=== PATIENT | male | born 1960 | race African-American/Black ===

== ENCOUNTER 2018-08-17 10:48 | Inpatient (IN) | payer OTHER ==
[2018-08-17 11:21] VITALS: BMI 20.7
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
[2018-08-17] MEDS ORDERED: ACETAMINOPHEN 325 MG TABLET (FP) PO PRN (15:32)
[2018-08-17] MEDS ORDERED: hydrOXYzine PAMOATE 25 MG CAPSULE (FP) PO PRN (15:32)
[2018-08-17] MEDS ORDERED: P-EPHED 60MG/TRIPROLIDI 2.5MG TABLET PO PRN (15:32)
[2018-08-17] MEDS ORDERED: MAGNESIUM CITRATE 300 ML BOTTLE PO PRN (15:32)
[2018-08-17] MEDS ORDERED: MAGNESIUM HYDROX 2400MG/30ML ORAL SUSPENSION 30 ML CUP PO PRN (15:32)
[2018-08-17] MEDS ORDERED: NICOTINE POLACRILEX 2 MG GUM BUC PRN (15:32)
[2018-08-17] MEDS ORDERED: chlordiazePOXIDE HCL 25 MG CAPSULE PO PRN (15:32)
[2018-08-17] MEDS ORDERED: IBUPROFEN 400 MG TABLET (FP) PO PRN (15:32)
[2018-08-17] MEDS ORDERED: guaiFENesin/D-METHORPHAN HB 10 ML UNIT-DOSE CUPS PO PRN (15:32)
[2018-08-17] MEDS ORDERED: LOPERAMIDE HCL 2 MG CAPSULE PO PRN (15:32)
[2018-08-17] MEDS: chlordiazePOXIDE HCL 25 MG CAPSULE PO SCH ×2 (17:31→22:57)
[2018-08-17] MEDS: THIAMINE HCL 100 MG TABLET (FP) PO SCH (22:57)
[2018-08-17 23:53] LABS: URINE APPEARANCE CLEAR; URINE BILIRUBIN NEGATIVE (<2.0 mg/dL); URINE COLOR DKYELLOW; URINE GLUCOSE (UA) NEGATIVE (NEGATIVE); URINE KETONE NEGATIVE (NEGATIVE); URINE LEUK ESTERASE NEGATIVE (NEGATIVE); URINE NITRITE NEGATIVE (NEGATIVE); URINE PROTEIN NEGATIVE (NEGATIVE); URINE UROBILINOGEN 4.0 E.U/dl mg/dL (0.2-1.0)
[2018-08-18] MEDS: chlordiazePOXIDE HCL 25 MG CAPSULE PO SCH ×4 (05:53→23:17)
[2018-08-18 10:14] LABS: HEMATOCRIT 45.4 % (35.4-49); HEMOGLOBIN 14.6 GM/dL (11.7-16.9); MCH 32.3 pg (25.7-33.7); MCHC 32.2 g/dl (32.0-35.9); MEAN CELL VOLUME 100.1 fl (80-96); PLATELET COUNT 244 K/MM3 (134-434); RBC 4.54 M/mm3 (4.00-5.60); RDW 13.1 % (11.9-15.9); WHITE BLOOD COUNT 9.1 K/mm3 (4.0-10.0)
[2018-08-18 10:36] LABS: ALBUMIN 3.1 g/dl (3.4-5.0); ALK PHOS 74 U/L (45-117); ANION GAP 6 MMOL/L (8-16); BILIRUBIN,TOTAL 0.2 mg/dL (0.2-1); BLOOD UREA NITROGEN 16 mg/dL (7-18); CALCIUM 8.5 mg/dL (8.5-10.1); CHLORIDE 109 mmol/L (98-107); CO2 28 mmol/L (21-32); CREATININE 1.1 mg/dL (0.55-1.3); GLUCOSE,RANDOM 104 mg/dL (74-106); POTASSIUM 4.1 mmol/L (3.5-5.1); SGOT/AST 18 U/L (15-37); SGPT/ALT 23 U/L (13-61); SODIUM 142 mmol/L (136-145); TOT PROT 6.1 g/dl (6.4-8.2)
[2018-08-18] MEDS: PRENATAL VITAMINS W/ FOLIC ACID TABLET (FP) PO SCH (10:38)
[2018-08-18] MEDS: NICOTINE 21 MG/24 HOURS TOPICAL PATCH TD SCH (10:38)
--- NOTE | 2018-08-18 12:56 | PN ---
[facility] CIWA - CIWA Score Nausea/Vomitin-Mild Nausea/No Vomiting Muscle Tremors: 2 Anxiety: 1-Mildly Anxious Agitation: 1-Slight > Activity Paroxysmal Sweats: 1-Minimal Palms Moist Orientation: 0-Oriented Tacttile Disturbances: 0-None Auditory Disturbances: 0-None Visual Disturbances: 0-None Headache: 0-None Present CIWA-Ar Total Score: 6 [facility] Progress Note (SOAP) Subjective: pt states feeling fine today- feeling better with meds O: Vital Signs - 24 hr 08/17/18 08/18/18 08/18/18 17:29 03:30 06:44 Temperature 98.4 F 97.7 F Pulse Rate 81 69 Respiratory 18 18 18 Rate Blood Pressure 116/74 127/80 08/18/18 09:26 Temperature 98.2 F Pulse Rate 83 Respiratory 18 Rate Blood Pressure 117/90 Laboratory Tests 08/17/18 08/18/18 08/18/18 23:00 07:00 07:00 WBC 9.1 RBC 4.54 Hgb 14.6 Hct 45.4 MCV 100.1 H MCH 32.3 MCHC 32.2 RDW 13.1 Plt Count 244 D MPV 8.0 Sodium 142 Potassium 4.1 Chloride 109 H Carbon Dioxide 28 Anion Gap 6 L BUN 16 Creatinine 1.1 Creat Clearance w eGFR > 60 Random Glucose 104 Calcium 8.5 Total Bilirubin 0.2 AST 18 ALT 23 Alkaline Phosphatase 74 Total Protein 6.1 L Albumin 3.1 L Urine Color Dkyellow Urine Appearance Clear Urine pH 5.0 Ur Specific [place] 1.025 Urine Protein Negative Urine Glucose (UA) Negative Urine Ketones Negative Urine Blood Negative Urine Nitrite Negative Urine Bilirubin Negative Urine Urobilinogen 4.0 e.u/dl Ur Leukocyte Esterase Negative a/p: continue alcohol detox protocol: to would like to continue with NA meetings at discharge
[2018-08-18] MEDS: MELATONIN 5 MG TABLETS PO PRN (23:17)
[2018-08-18] MEDS: THIAMINE HCL 100 MG TABLET (FP) PO SCH (23:17)
[2018-08-19] MEDS: chlordiazePOXIDE HCL 25 MG CAPSULE PO SCH ×2 (06:04→11:15)
[2018-08-19] MEDS: PRENATAL VITAMINS W/ FOLIC ACID TABLET (FP) PO SCH (11:14)
[2018-08-19] MEDS: NICOTINE 21 MG/24 HOURS TOPICAL PATCH TD SCH (11:14)
--- NOTE | 2018-08-19 16:24 | PN ---
[facility] CIWA - CIWA Score Nausea/Vomitin-Mild Nausea/No Vomiting Muscle Tremors: 3 Anxiety: 3 Agitation: 2 Paroxysmal Sweats: 3 Orientation: 0-Oriented Tacttile Disturbances: 0-None Auditory Disturbances: 0-None Visual Disturbances: 0-None Headache: 0-None Present CIWA-Ar Total Score: 12 S Progress Note (SOAP) Subjective: sweats shakes Objective: 08/19/18 16:22 A& o x 3 in bed no acute distress noted Vital Signs Temperature 97.9 F 08/19/18 13:50 Pulse Rate 80 08/19/18 13:50 Respiratory Rate 18 08/19/18 13:50 Blood Pressure 120/79 08/19/18 13:50 O2 Sat by Pulse Oximetry (%) Laboratory Last Values WBC 9.1 K/mm3 (4.0-10.0) 08/18/18 07:00 RBC 4.54 M/mm3 (4.00-5.60) 08/18/18 07:00 Hgb 14.6 GM/dL (11.7-16.9) 08/18/18 07:00 Hct 45.4 % (35.4-49) 08/18/18 07:00 MCV 100.1 fl (80-96) H 08/18/18 07:00 MCH 32.3 pg (25.7-33.7) 08/18/18 07:00 MCHC 32.2 g/dl (32.0-35.9) 08/18/18 07:00 RDW 13.1 % (11.9-15.9) 08/18/18 07:00 Plt Count 244 K/MM3 (134-434) D 08/18/18 07:00 MPV 8.0 fl (7.5-11.1) 08/18/18 07:00 Sodium 142 mmol/L (136-145) 08/18/18 07:00 Potassium 4.1 mmol/L (3.5-5.1) 08/18/18 07:00 Chloride 109 mmol/L (98-107) H 08/18/18 07:00 Carbon Dioxide 28 mmol/L (21-32) 08/18/18 07:00 Anion Gap 6 MMOL/L (8-16) L 08/18/18 07:00 BUN 16 mg/dL (7-18) 08/18/18 07:00 Creatinine 1.1 mg/dL (0.55-1.3) 08/18/18 07:00 Creat Clearance w eGFR > 60 (>60) 08/18/18 07:00 Random Glucose 104 mg/dL (74-106) 08/18/18 07:00 Calcium 8.5 mg/dL (8.5-10.1) 08/18/18 07:00 Total Bilirubin 0.2 mg/dL (0.2-1) 08/18/18 07:00 AST 18 U/L (15-37) 08/18/18 07:00 ALT 23 U/L (13-61) 08/18/18 07:00 Alkaline Phosphatase 74 U/L (45-117) 08/18/18 07:00 Total Protein 6.1 g/dl (6.4-8.2) L 08/18/18 07:00 Albumin 3.1 g/dl (3.4-5.0) L 08/18/18 07:00 Urine Color Dkyellow 08/17/18 23:00 Urine Appearance Clear 08/17/18 23:00 Urine pH 5.0 (5.0-8.0) 08/17/18 23:00 Ur Specific [place] 1.025 (1.010-1.035) 08/17/18 23:00 Urine Protein Negative (NEGATIVE) 08/17/18 23:00 Urine Glucose (UA) Negative (NEGATIVE) 08/17/18 23:00 Urine Ketones Negative (NEGATIVE) 08/17/18 23:00 Urine Blood Negative (NEGATIVE) 08/17/18 23:00 Urine Nitrite Negative (NEGATIVE) 08/17/18 23:00 Urine Bilirubin Negative (<2.0 mg/dL) 08/17/18 23:00 Urine Urobilinogen 4.0 e.u/dl mg/dL (0.2-1.0) 08/17/18 23:00 Ur Leukocyte Esterase Negative (NEGATIVE) 08/17/18 23:00 RPR Titer Nonreactive (NONREACTIVE) 08/18/18 07:00 Assessment: 08/19/18 16:23 withdrawal sx Plan: Continue detox
[2018-08-19] MEDS: chlordiazePOXIDE 5 MG CAPSULE PO SCH ×2 (18:24→23:56)
[2018-08-19] MEDS: THIAMINE HCL 100 MG TABLET (FP) PO SCH (23:56)
[2018-08-20] MEDS: chlordiazePOXIDE 5 MG CAPSULE PO SCH ×2 (05:19→10:21)
[2018-08-20] MEDS: PRENATAL VITAMINS W/ FOLIC ACID TABLET (FP) PO SCH (10:21)
[2018-08-20] MEDS: NICOTINE 21 MG/24 HOURS TOPICAL PATCH TD SCH (10:21)
--- NOTE | 2018-08-20 12:36 | PN ---
[facility] Progress Note (SOAP) Subjective: feeling better less tremor mild sweating no gi distress Objective: 08/20/18 12:35 Vital Signs Temperature 98.3 F 08/20/18 09:36 Pulse Rate 82 08/20/18 09:36 Respiratory Rate 18 08/20/18 09:36 Blood Pressure 100/65 08/20/18 09:36 O2 Sat by Pulse Oximetry (%) Laboratory Last Values WBC 9.1 K/mm3 (4.0-10.0) 08/18/18 07:00 RBC 4.54 M/mm3 (4.00-5.60) 08/18/18 07:00 Hgb 14.6 GM/dL (11.7-16.9) 08/18/18 07:00 Hct 45.4 % (35.4-49) 08/18/18 07:00 MCV 100.1 fl (80-96) H 08/18/18 07:00 MCH 32.3 pg (25.7-33.7) 08/18/18 07:00 MCHC 32.2 g/dl (32.0-35.9) 08/18/18 07:00 RDW 13.1 % (11.9-15.9) 08/18/18 07:00 Plt Count 244 K/MM3 (134-434) D 08/18/18 07:00 MPV 8.0 fl (7.5-11.1) 08/18/18 07:00 Sodium 142 mmol/L (136-145) 08/18/18 07:00 Potassium 4.1 mmol/L (3.5-5.1) 08/18/18 07:00 Chloride 109 mmol/L (98-107) H 08/18/18 07:00 Carbon Dioxide 28 mmol/L (21-32) 08/18/18 07:00 Anion Gap 6 MMOL/L (8-16) L 08/18/18 07:00 BUN 16 mg/dL (7-18) 08/18/18 07:00 Creatinine 1.1 mg/dL (0.55-1.3) 08/18/18 07:00 Creat Clearance w eGFR > 60 (>60) 08/18/18 07:00 Random Glucose 104 mg/dL (74-106) 08/18/18 07:00 Calcium 8.5 mg/dL (8.5-10.1) 08/18/18 07:00 Total Bilirubin 0.2 mg/dL (0.2-1) 08/18/18 07:00 AST 18 U/L (15-37) 08/18/18 07:00 ALT 23 U/L (13-61) 08/18/18 07:00 Alkaline Phosphatase 74 U/L (45-117) 08/18/18 07:00 Total Protein 6.1 g/dl (6.4-8.2) L 08/18/18 07:00 Albumin 3.1 g/dl (3.4-5.0) L 08/18/18 07:00 Urine Color Dkyellow 08/17/18 23:00 Urine Appearance Clear 08/17/18 23:00 Urine pH 5.0 (5.0-8.0) 08/17/18 23:00 Ur Specific [place] 1.025 (1.010-1.035) 08/17/18 23:00 Urine Protein Negative (NEGATIVE) 08/17/18 23:00 Urine Glucose (UA) Negative (NEGATIVE) 08/17/18 23:00 Urine Ketones Negative (NEGATIVE) 08/17/18 23:00 Urine Blood Negative (NEGATIVE) 08/17/18 23:00 Urine Nitrite Negative (NEGATIVE) 08/17/18 23:00 Urine Bilirubin Negative (<2.0 mg/dL) 08/17/18 23:00 Urine Urobilinogen 4.0 e.u/dl mg/dL (0.2-1.0) 08/17/18 23:00 Ur Leukocyte Esterase Negative (NEGATIVE) 08/17/18 23:00 RPR Titer Nonreactive (NONREACTIVE) 08/18/18 07:00 lab noted Assessment: 08/20/18 12:35 withdrawal sx Plan: continue detox
[2018-08-20] MEDS: chlordiazePOXIDE HCL 10 MG CAPSULE PO SCH ×2 (18:46→22:20)
[2018-08-20] MEDS: THIAMINE HCL 100 MG TABLET (FP) PO SCH (22:20)
[2018-08-21] MEDS: chlordiazePOXIDE HCL 10 MG CAPSULE PO SCH ×2 (05:57→10:30)
--- NOTE | 2018-08-21 08:58 | DS ---
[facility] Detox Discharge Summary Admission Date: 08/17/18 Discharge Date: 08/21/18 - History Present History: Alcohol Dependence, Cannabis Dependence - Physical Exam Results Vital Signs: Vital Signs Temperature 98.1 F 08/21/18 06:16 Pulse Rate 65 08/21/18 06:16 Respiratory Rate 18 08/21/18 06:16 Blood Pressure 107/63 08/21/18 06:16 O2 Sat by Pulse Oximetry (%) - Treatment Hospital Course: Detox Protocol Followed, Detoxed Safely, Responded well, Discharged Condition Good, Rehab Referral Accepted - Medication Discharge Medications: Ambulatory Orders Quetiapine Fumarate [Seroquel -] 300 mg PO HS 01/13/15 Fluoxetine HCl [Prozac -] 20 mg PO DAILY #30 capsule 02/10/15 - Diagnosis (1) Alcohol dependence with uncomplicated withdrawal Current Visit: Yes Status: Chronic (2) Bipolar disorder Current Visit: Yes Status: Acute (3) Cocaine dependence Current Visit: Yes Status: Chronic Qualifiers: Substance use status: uncomplicated Qualified Code(s): F14.20 - Cocaine dependence, uncomplicated (4) History of chaves Current Visit: Yes Status: Acute (5) Bipolar disorder Current Visit: No Status: Acute (6) Schizoaffective disorder Current Visit: No Status: Acute (7) Simple dental caries Current Visit: No Status: Acute (8) Arthritis Current Visit: No Status: Chronic (9) Cannabis dependence Current Visit: Yes Status: Chronic (10) Nicotine dependence Current Visit: Yes Status: Chronic Qualifiers: Nicotine product type: cigarettes Substance use status: uncomplicated Qualified Code(s): F17.210 - Nicotine dependence, cigarettes, uncomplicated (11) Use of cane as ambulatory aid Current Visit: No Status: Chronic - AMA Did Patient Leave Against Medical Advice: No ([facility])
[2018-08-21] MEDS: NICOTINE 21 MG/24 HOURS TOPICAL PATCH TD SCH (10:29)
[2018-08-21] MEDS: PRENATAL VITAMINS W/ FOLIC ACID TABLET (FP) PO SCH (10:29)
--- NOTE | 2018-08-21 15:20 | HP ---
[facility] Rehab Assess/Revision - Admission History Admitted to Rehab from: [facility] - Vital signs Vital Signs: Vital Signs Period Temp Pulse Resp BP Sys/Wilson Pulse Ox Last 24 Hr 98.1 F-99.0 F 65-79 16-18 107-123/58-89 - Findings Detox History & Physical reviewed: Yes Concur with findings: Yes Inpatient Rehab Admission - Initial Determination Are CD services needed?: Yes Free of communicable disease: Yes Not in need of hospitalization: Yes - Rehab Admission Criteria Previous failed treatment: Yes Comorbidities: Yes Lacks judgement: Yes
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
[2018-08-21] MEDS: QUEtiapine FUMARATE 50 MG TABLET PO SCH (21:49)
[2018-08-21] MEDS: THIAMINE HCL 100 MG TABLET (FP) PO SCH (21:49)
[2018-08-22] MEDS: PRENATAL VITAMINS W/ FOLIC ACID TABLET (FP) PO SCH (11:00)
[2018-08-22] MEDS: NICOTINE 21 MG/24 HOURS TOPICAL PATCH TD SCH (11:00)
[2018-08-22] MEDS: QUEtiapine FUMARATE 50 MG TABLET PO SCH (21:51)
[2018-08-22] MEDS: THIAMINE HCL 100 MG TABLET (FP) PO SCH (21:51)
[2018-08-22] MEDS: MAG HYDROX/AL HYDROX/SIMETH 30 ML UNIT-DOSE CUP PO PRN (21:52)
[2018-08-23] MEDS: NICOTINE 21 MG/24 HOURS TOPICAL PATCH TD SCH (10:45)
[2018-08-23] MEDS: PRENATAL VITAMINS W/ FOLIC ACID TABLET (FP) PO SCH (10:45)
[2018-08-23] MEDS: THIAMINE HCL 100 MG TABLET (FP) PO SCH (21:36)
[2018-08-23] MEDS: MELATONIN 5 MG TABLETS PO PRN (21:36)
[2018-08-23] MEDS: QUEtiapine FUMARATE 50 MG TABLET PO SCH (21:36)
[2018-08-24] MEDS: PRENATAL VITAMINS W/ FOLIC ACID TABLET (FP) PO SCH (10:30)
[2018-08-24] MEDS: NICOTINE 21 MG/24 HOURS TOPICAL PATCH TD SCH (10:31)
[2018-08-24] MEDS: TOLNAFTATE 1% CREAM 15 GM TUBE TP SCH ×2 (10:31→22:07)
--- NOTE | 2018-08-24 10:51 | PN ---
[facility] Progress Note Note: PT C/O DRY ITCHY FEET AND REQUESTING TREATMENT. Vital Signs 08/24/18 08/24/18 03:30 07:11 Temperature 98.3 F Pulse Rate 62 Respiratory 18 18 Rate Blood Pressure 128/85 Laboratory Tests 08/17/18 08/18/18 08/18/18 23:00 07:00 07:00 WBC 9.1 RBC 4.54 Hgb 14.6 Hct 45.4 MCV 100.1 H MCH 32.3 MCHC 32.2 RDW 13.1 Plt Count 244 D MPV 8.0 Sodium 142 Potassium 4.1 Chloride 109 H Carbon Dioxide 28 Anion Gap 6 L BUN 16 Creatinine 1.1 Creat Clearance w eGFR > 60 Random Glucose 104 Calcium 8.5 Total Bilirubin 0.2 AST 18 ALT 23 Alkaline Phosphatase 74 Total Protein 6.1 L Albumin 3.1 L Urine Color Dkyellow Urine Appearance Clear Urine pH 5.0 Ur Specific [place] 1.025 Urine Protein Negative Urine Glucose (UA) Negative Urine Ketones Negative Urine Blood Negative Urine Nitrite Negative Urine Bilirubin Negative Urine Urobilinogen 4.0 e.u/dl Ur Leukocyte Esterase Negative RPR Titer 08/18/18 07:00 WBC RBC Hgb Hct MCV MCH MCHC RDW Plt Count MPV Sodium Potassium Chloride Carbon Dioxide Anion Gap BUN Creatinine Creat Clearance w eGFR Random Glucose Calcium Total Bilirubin AST ALT Alkaline Phosphatase Total Protein Albumin Urine Color Urine Appearance Urine pH Ur Specific [place] Urine Protein Urine Glucose (UA) Urine Ketones Urine Blood Urine Nitrite Urine Bilirubin Urine Urobilinogen Ur Leukocyte Esterase RPR Titer Nonreactive SKIN:VERY DRY SKIN FEET DRY, ASHY AND SCALY. DI:TINEA PEDIS DRY SKIN PLAN:TINACTIN CREAM DIRECTED EUCERINE CREAM DIRECTED.
[2018-08-24] MEDS ORDERED: MINERAL OIL/PETROLAT/WATER TOPICAL CREAM 113 GM JAR TP SCH (11:00)
[2018-08-24] MEDS: MINERAL OIL/PETROLAT/WATER TOPICAL CREAM 113 GM JAR TP SCH (14:19)
[2018-08-24] MEDS: THIAMINE HCL 100 MG TABLET (FP) PO SCH (21:39)
[2018-08-24] MEDS: QUEtiapine FUMARATE 50 MG TABLET PO SCH (21:39)
[2018-08-25] MEDS: PRENATAL VITAMINS W/ FOLIC ACID TABLET (FP) PO SCH (10:17)
[2018-08-25] MEDS: TOLNAFTATE 1% CREAM 15 GM TUBE TP SCH ×2 (10:18→21:47)
[2018-08-25] MEDS: NICOTINE 21 MG/24 HOURS TOPICAL PATCH TD SCH (10:18)
[2018-08-25] MEDS: MINERAL OIL/PETROLAT/WATER TOPICAL CREAM 113 GM JAR TP SCH (10:18)
--- NOTE | 2018-08-25 13:04 | PN ---
[facility] Progress Note Note: PT REPORTS HE TAKES GABAPENTIN FOR NEUROPATHY-BURNING/TINGLING EXTREMITIES. HX OF ARTHRITIS. MEDICATION CONFIRMED WITH [facility] DR[facility]ARMACIST TODAY AT [address] [place] [address],[facility]. PT HAD BEEN ON GABAPENTIN 300 MG PO DAILY, LAST PICKED UP AT THIS LOCATION IN JULY OF 2017. ;[phone]; FAX . PT REQUESTING WANTS TO RESTART DUE TO DISCOMFORT. Vital Signs 08/25/18 06:47 Temperature 97.8 F Pulse Rate 87 Respiratory 18 Rate Blood Pressure 105/76 AMBULATES WITH A CANE. PLAN:RESTART GABAPENTIN 300 MG PO PO DAILY FOLLOW UP WITH PMD FOR MEDICAL MANAGEMENT AFTER REHAB TREATMENT.
[2018-08-25] MEDS ORDERED: GABAPENTIN 300 MG CAPSULE (FP) PO ONE (14:07)
[2018-08-25] MEDS: QUEtiapine FUMARATE 50 MG TABLET PO SCH (21:46)
[2018-08-25] MEDS: THIAMINE HCL 100 MG TABLET (FP) PO SCH (21:46)
[2018-08-26] MEDS: PRENATAL VITAMINS W/ FOLIC ACID TABLET (FP) PO SCH (10:12)
[2018-08-26] MEDS: GABAPENTIN 300 MG CAPSULE (FP) PO SCH (10:12)
[2018-08-26] MEDS: MINERAL OIL/PETROLAT/WATER TOPICAL CREAM 113 GM JAR TP SCH (10:12)
[2018-08-26] MEDS: NICOTINE 21 MG/24 HOURS TOPICAL PATCH TD SCH (10:12)
[2018-08-26] MEDS: TOLNAFTATE 1% CREAM 15 GM TUBE TP SCH ×2 (10:13→22:23)
[2018-08-26] MEDS: QUEtiapine FUMARATE 50 MG TABLET PO SCH (21:49)
[2018-08-26] MEDS: THIAMINE HCL 100 MG TABLET (FP) PO SCH (21:49)
[2018-08-27] MEDS: GABAPENTIN 300 MG CAPSULE (FP) PO SCH (10:24)
[2018-08-27] MEDS: MINERAL OIL/PETROLAT/WATER TOPICAL CREAM 113 GM JAR TP SCH (10:25)
[2018-08-27] MEDS: TOLNAFTATE 1% CREAM 15 GM TUBE TP SCH ×2 (10:25→22:30)
[2018-08-27] MEDS: PRENATAL VITAMINS W/ FOLIC ACID TABLET (FP) PO SCH (10:25)
[2018-08-27] MEDS: NICOTINE 21 MG/24 HOURS TOPICAL PATCH TD SCH (10:25)
[2018-08-27] MEDS: THIAMINE HCL 100 MG TABLET (FP) PO SCH (21:37)
[2018-08-27] MEDS: QUEtiapine FUMARATE 50 MG TABLET PO SCH (21:37)
[2018-08-28] MEDS: NICOTINE 21 MG/24 HOURS TOPICAL PATCH TD SCH (10:08)
[2018-08-28] MEDS: TOLNAFTATE 1% CREAM 15 GM TUBE TP SCH ×2 (10:08→21:52)
[2018-08-28] MEDS: PRENATAL VITAMINS W/ FOLIC ACID TABLET (FP) PO SCH (10:08)
[2018-08-28] MEDS: MINERAL OIL/PETROLAT/WATER TOPICAL CREAM 113 GM JAR TP SCH (10:08)
[2018-08-28] MEDS: GABAPENTIN 300 MG CAPSULE (FP) PO SCH (10:08)
[2018-08-28] MEDS: QUEtiapine FUMARATE 50 MG TABLET PO SCH (21:51)
[2018-08-28] MEDS: THIAMINE HCL 100 MG TABLET (FP) PO SCH (21:51)
[2018-08-29] MEDS: GABAPENTIN 300 MG CAPSULE (FP) PO SCH (10:20)
[2018-08-29] MEDS: PRENATAL VITAMINS W/ FOLIC ACID TABLET (FP) PO SCH (10:20)
[2018-08-29] MEDS: MINERAL OIL/PETROLAT/WATER TOPICAL CREAM 113 GM JAR TP SCH (10:20)
[2018-08-29] MEDS: NICOTINE 21 MG/24 HOURS TOPICAL PATCH TD SCH (10:20)
[2018-08-29] MEDS: TOLNAFTATE 1% CREAM 15 GM TUBE TP SCH ×2 (10:20→21:38)
[2018-08-29] MEDS: THIAMINE HCL 100 MG TABLET (FP) PO SCH (21:37)
[2018-08-29] MEDS: QUEtiapine FUMARATE 50 MG TABLET PO SCH (21:37)
[2018-08-29] MEDS: MAG HYDROX/AL HYDROX/SIMETH 30 ML UNIT-DOSE CUP PO PRN (21:38)
[2018-08-30] MEDS: GABAPENTIN 300 MG CAPSULE (FP) PO SCH (10:21)
[2018-08-30] MEDS: NICOTINE 21 MG/24 HOURS TOPICAL PATCH TD SCH (10:21)
[2018-08-30] MEDS: PRENATAL VITAMINS W/ FOLIC ACID TABLET (FP) PO SCH (10:21)
[2018-08-30] MEDS: TOLNAFTATE 1% CREAM 15 GM TUBE TP SCH ×2 (10:21→21:43)
[2018-08-30] MEDS: MINERAL OIL/PETROLAT/WATER TOPICAL CREAM 113 GM JAR TP SCH (10:21)
[2018-08-30] MEDS: THIAMINE HCL 100 MG TABLET (FP) PO SCH (21:42)
[2018-08-30] MEDS: QUEtiapine FUMARATE 50 MG TABLET PO SCH (21:42)
[2018-08-31] MEDS: GABAPENTIN 300 MG CAPSULE (FP) PO SCH (10:25)
[2018-08-31] MEDS: MINERAL OIL/PETROLAT/WATER TOPICAL CREAM 113 GM JAR TP SCH (10:25)
[2018-08-31] MEDS: PRENATAL VITAMINS W/ FOLIC ACID TABLET (FP) PO SCH (10:25)
[2018-08-31] MEDS: NICOTINE 21 MG/24 HOURS TOPICAL PATCH TD SCH (10:26)
[2018-08-31] MEDS: TOLNAFTATE 1% CREAM 15 GM TUBE TP SCH ×2 (11:00→22:00)
[2018-08-31] MEDS: THIAMINE HCL 100 MG TABLET (FP) PO SCH (22:00)
[2018-08-31] MEDS: QUEtiapine FUMARATE 50 MG TABLET PO SCH (22:00)
[2018-09-01] MEDS: PRENATAL VITAMINS W/ FOLIC ACID TABLET (FP) PO SCH (10:22)
[2018-09-01] MEDS: GABAPENTIN 300 MG CAPSULE (FP) PO SCH (10:22)
[2018-09-01] MEDS: MINERAL OIL/PETROLAT/WATER TOPICAL CREAM 113 GM JAR TP SCH (10:23)
[2018-09-01] MEDS: NICOTINE 21 MG/24 HOURS TOPICAL PATCH TD SCH (10:23)
[2018-09-01] MEDS: TOLNAFTATE 1% CREAM 15 GM TUBE TP SCH ×2 (11:30→22:34)
[2018-09-01] MEDS: THIAMINE HCL 100 MG TABLET (FP) PO SCH (22:10)
[2018-09-01] MEDS: QUEtiapine FUMARATE 50 MG TABLET PO SCH (22:10)
[2018-09-02] MEDS: GABAPENTIN 300 MG CAPSULE (FP) PO SCH (10:30)
[2018-09-02] MEDS: TOLNAFTATE 1% CREAM 15 GM TUBE TP SCH ×2 (10:30→21:30)
[2018-09-02] MEDS: MINERAL OIL/PETROLAT/WATER TOPICAL CREAM 113 GM JAR TP SCH (10:30)
[2018-09-02] MEDS: PRENATAL VITAMINS W/ FOLIC ACID TABLET (FP) PO SCH (10:30)
[2018-09-02] MEDS: NICOTINE 21 MG/24 HOURS TOPICAL PATCH TD SCH (10:30)
[2018-09-02] MEDS: QUEtiapine FUMARATE 50 MG TABLET PO SCH (21:29)
[2018-09-02] MEDS: THIAMINE HCL 100 MG TABLET (FP) PO SCH (21:29)
[2018-09-03] MEDS: GABAPENTIN 300 MG CAPSULE (FP) PO SCH (10:13)
[2018-09-03] MEDS: PRENATAL VITAMINS W/ FOLIC ACID TABLET (FP) PO SCH (10:13)
[2018-09-03] MEDS: NICOTINE 21 MG/24 HOURS TOPICAL PATCH TD SCH (10:14)
[2018-09-03] MEDS: TOLNAFTATE 1% CREAM 15 GM TUBE TP SCH ×2 (10:14→21:30)
[2018-09-03] MEDS: MINERAL OIL/PETROLAT/WATER TOPICAL CREAM 113 GM JAR TP SCH (10:14)
[2018-09-03] MEDS: THIAMINE HCL 100 MG TABLET (FP) PO SCH (21:30)
[2018-09-03] MEDS: QUEtiapine FUMARATE 50 MG TABLET PO SCH (21:30)
[2018-09-04] MEDS: PRENATAL VITAMINS W/ FOLIC ACID TABLET (FP) PO SCH (10:49)
[2018-09-04] MEDS: GABAPENTIN 300 MG CAPSULE (FP) PO SCH (10:49)
[2018-09-04] MEDS: TOLNAFTATE 1% CREAM 15 GM TUBE TP SCH ×2 (10:49→21:37)
[2018-09-04] MEDS: NICOTINE 21 MG/24 HOURS TOPICAL PATCH TD SCH (10:50)
[2018-09-04] MEDS: MINERAL OIL/PETROLAT/WATER TOPICAL CREAM 113 GM JAR TP SCH (10:50)
[2018-09-04] MEDS: THIAMINE HCL 100 MG TABLET (FP) PO SCH (21:37)
[2018-09-04] MEDS: QUEtiapine FUMARATE 50 MG TABLET PO SCH (21:37)
[2018-09-05] MEDS: PRENATAL VITAMINS W/ FOLIC ACID TABLET (FP) PO SCH (10:59)
[2018-09-05] MEDS: MINERAL OIL/PETROLAT/WATER TOPICAL CREAM 113 GM JAR TP SCH (11:00)
[2018-09-05] MEDS: NICOTINE 21 MG/24 HOURS TOPICAL PATCH TD SCH (11:00)
[2018-09-05] MEDS: TOLNAFTATE 1% CREAM 15 GM TUBE TP SCH ×2 (11:00→21:47)
[2018-09-05] MEDS: GABAPENTIN 300 MG CAPSULE (FP) PO SCH (11:00)
[2018-09-05] MEDS: THIAMINE HCL 100 MG TABLET (FP) PO SCH (21:47)
[2018-09-05] MEDS: QUEtiapine FUMARATE 50 MG TABLET PO SCH (21:47)
[2018-09-06] MEDS: TOLNAFTATE 1% CREAM 15 GM TUBE TP SCH ×2 (10:46→21:35)
[2018-09-06] MEDS: MINERAL OIL/PETROLAT/WATER TOPICAL CREAM 113 GM JAR TP SCH (10:46)
[2018-09-06] MEDS: NICOTINE 21 MG/24 HOURS TOPICAL PATCH TD SCH (10:46)
[2018-09-06] MEDS: GABAPENTIN 300 MG CAPSULE (FP) PO SCH (10:46)
[2018-09-06] MEDS: PRENATAL VITAMINS W/ FOLIC ACID TABLET (FP) PO SCH (10:46)
[2018-09-06] MEDS: QUEtiapine FUMARATE 50 MG TABLET PO SCH (21:35)
[2018-09-06] MEDS: THIAMINE HCL 100 MG TABLET (FP) PO SCH (21:35)
[2018-09-07] MEDS: GABAPENTIN 300 MG CAPSULE (FP) PO SCH (10:11)
[2018-09-07] MEDS: PRENATAL VITAMINS W/ FOLIC ACID TABLET (FP) PO SCH (10:11)
[2018-09-07] MEDS: MINERAL OIL/PETROLAT/WATER TOPICAL CREAM 113 GM JAR TP SCH (10:11)
[2018-09-07] MEDS: TOLNAFTATE 1% CREAM 15 GM TUBE TP SCH ×2 (10:11→21:26)
[2018-09-07] MEDS: NICOTINE 21 MG/24 HOURS TOPICAL PATCH TD SCH (10:11)
[2018-09-07] MEDS: THIAMINE HCL 100 MG TABLET (FP) PO SCH (21:26)
[2018-09-07] MEDS: QUEtiapine FUMARATE 50 MG TABLET PO SCH (21:26)
[2018-09-08] MEDS: GABAPENTIN 300 MG CAPSULE (FP) PO SCH (10:18)
[2018-09-08] MEDS: TOLNAFTATE 1% CREAM 15 GM TUBE TP SCH ×2 (10:19→21:38)
[2018-09-08] MEDS: PRENATAL VITAMINS W/ FOLIC ACID TABLET (FP) PO SCH (10:19)
[2018-09-08] MEDS: NICOTINE 21 MG/24 HOURS TOPICAL PATCH TD SCH (10:19)
[2018-09-08] MEDS: MINERAL OIL/PETROLAT/WATER TOPICAL CREAM 113 GM JAR TP SCH (10:19)
[2018-09-08] MEDS: QUEtiapine FUMARATE 50 MG TABLET PO SCH (21:36)
[2018-09-08] MEDS: THIAMINE HCL 100 MG TABLET (FP) PO SCH (21:36)
[2018-09-09] MEDS: GABAPENTIN 300 MG CAPSULE (FP) PO SCH (10:17)
[2018-09-09] MEDS: PRENATAL VITAMINS W/ FOLIC ACID TABLET (FP) PO SCH (10:18)
[2018-09-09] MEDS: MINERAL OIL/PETROLAT/WATER TOPICAL CREAM 113 GM JAR TP SCH (10:18)
[2018-09-09] MEDS: NICOTINE 21 MG/24 HOURS TOPICAL PATCH TD SCH (10:18)
[2018-09-09] MEDS: TOLNAFTATE 1% CREAM 15 GM TUBE TP SCH ×2 (10:18→21:31)
[2018-09-09] MEDS: THIAMINE HCL 100 MG TABLET (FP) PO SCH (21:31)
[2018-09-09] MEDS: QUEtiapine FUMARATE 50 MG TABLET PO SCH (21:31)
[2018-09-10] MEDS: GABAPENTIN 300 MG CAPSULE (FP) PO SCH (09:52)
[2018-09-10] MEDS: PRENATAL VITAMINS W/ FOLIC ACID TABLET (FP) PO SCH (09:52)
[2018-09-10] MEDS: MINERAL OIL/PETROLAT/WATER TOPICAL CREAM 113 GM JAR TP SCH (09:52)
[2018-09-10] MEDS: NICOTINE 21 MG/24 HOURS TOPICAL PATCH TD SCH (09:53)
[2018-09-10] MEDS: TOLNAFTATE 1% CREAM 15 GM TUBE TP SCH ×2 (09:53→21:28)
[2018-09-10] MEDS: THIAMINE HCL 100 MG TABLET (FP) PO SCH (21:28)
[2018-09-10] MEDS: QUEtiapine FUMARATE 50 MG TABLET PO SCH (21:28)
[2018-09-10] MEDS: MENTHOL/PHENOL 1 EACH UD MM PRN (21:28)
[2018-09-11] MEDS: MENTHOL/PHENOL 1 EACH UD MM PRN (06:37)
[2018-09-11 07:27] VITALS: BP 108/82; PULSE 80; TEMP 99.2
[2018-09-11] MEDS: GABAPENTIN 300 MG CAPSULE (FP) PO SCH (10:12)
[2018-09-11] MEDS: PRENATAL VITAMINS W/ FOLIC ACID TABLET (FP) PO SCH (10:13)
[2018-09-11] MEDS: MINERAL OIL/PETROLAT/WATER TOPICAL CREAM 113 GM JAR TP SCH (10:13)
[2018-09-11] MEDS: NICOTINE 21 MG/24 HOURS TOPICAL PATCH TD SCH (10:14)
[2018-09-11] MEDS: TOLNAFTATE 1% CREAM 15 GM TUBE TP SCH (10:14)
--- NOTE | 2018-09-11 11:48 | PN ---
[facility] Progress Note Note: PT COMPLETED REHAB AND DISCHARGING TODAY. ALERT O X 3. PT REPORTS HE HAS A PCP DR. DAMIAN AT [address] [place] [address] FOR MEDICAL MANAGEMENT. PT WA REFERRED TO [facility] [place] FOR MEDICAL MANAGEMENT. Vital Signs 09/11/18 07:26 Temperature 99.2 F Pulse Rate 80 Respiratory 18 Rate Blood Pressure 108/82 Laboratory Tests 08/17/18 08/18/18 08/18/18 23:00 07:00 07:00 WBC 9.1 RBC 4.54 Hgb 14.6 Hct 45.4 MCV 100.1 H MCH 32.3 MCHC 32.2 RDW 13.1 Plt Count 244 D MPV 8.0 Sodium 142 Potassium 4.1 Chloride 109 H Carbon Dioxide 28 Anion Gap 6 L BUN 16 Creatinine 1.1 Creat Clearance w eGFR > 60 Random Glucose 104 Calcium 8.5 Total Bilirubin 0.2 AST 18 ALT 23 Alkaline Phosphatase 74 Total Protein 6.1 L Albumin 3.1 L Urine Color Dkyellow Urine Appearance Clear Urine pH 5.0 Ur Specific [place] 1.025 Urine Protein Negative Urine Glucose (UA) Negative Urine Ketones Negative Urine Blood Negative Urine Nitrite Negative Urine Bilirubin Negative Urine Urobilinogen 4.0 e.u/dl Ur Leukocyte Esterase Negative RPR Titer 08/18/18 07:00 WBC RBC Hgb Hct MCV MCH MCHC RDW Plt Count MPV Sodium Potassium Chloride Carbon Dioxide Anion Gap BUN Creatinine Creat Clearance w eGFR Random Glucose Calcium Total Bilirubin AST ALT Alkaline Phosphatase Total Protein Albumin Urine Color Urine Appearance Urine pH Ur Specific [place] Urine Protein Urine Glucose (UA) Urine Ketones Urine Blood Urine Nitrite Urine Bilirubin Urine Urobilinogen Ur Leukocyte Esterase RPR Titer Nonreactive NAD MEDICALLY STABLE PLAN:FOLLOW UP AT [facility] FOR CD TREATMENT. FOLLOW UP WITH PCP FOR MEDICAL MANAGEMENT ABOVE WITHIN 1-2 WEEKS AFTER DISCHARGE.
== END 2018-09-11 11:35 | disposition home or self-care (01) | DRG 895 ==
LOC: YASAS 10:48 → Y6N 15:22 → Y5N 08-21 15:20
PROC: HZ2ZZZZ Detoxification Services for Substance Abuse Treatment (ICD-10-PCS; principal; 2018-08-17)
PROC: HZ42ZZZ Group Counseling for Substance Abuse Treatment, Cognitive-Behavioral (ICD-10-PCS; 2018-08-21)
DX: F10.230 Alcohol dependence with withdrawal, uncomplicated (principal); F14.20 Cocaine dependence, uncomplicated; F12.20 Cannabis dependence, uncomplicated; F17.210 Nicotine dependence, cigarettes, uncomplicated; F31.9 Bipolar disorder, unspecified; F25.9 Schizoaffective disorder, unspecified; J45.909 Unspecified asthma, uncomplicated; G62.9 Polyneuropathy, unspecified; L98.8 Other specified disorders of the skin and subcutaneous tissue; M19.90 Unspecified osteoarthritis, unspecified site; K02.9 Dental caries, unspecified; R26.2 Difficulty in walking, not elsewhere classified; Z99.89 Dependence on other enabling machines and devices; Z87.828 Personal history of other (healed) physical injury and trauma; Z86.69 Personal history of other diseases of the nervous system and sense organs; Z91.5 Personal history of self-harm
CPT/HCPCS: 36415; 80053; 81003; 85027; 86593

== ENCOUNTER 2022-02-18 12:50 | Inpatient (IN) | payer OTHER ==
[2022-02-18 13:25] VITALS: BMI 23.5
[2022-02-18] MEDS ORDERED: BISMUTH SUBSALICYLATE 262 MG/15 ML BTL PO PRN (13:36)
[2022-02-18] MEDS ORDERED: BENZOCAINE/MENTHOL (CHLORASEPTIC ) LOZENGE MM PRN (13:36)
[2022-02-18] MEDS ORDERED: MAGNESIUM CITRATE 300 ML BOTTLE PO PRN (13:36)
[2022-02-18] MEDS ORDERED: DICYCLOMINE HCL 10 MG CAPSULE PO PRN (13:36)
[2022-02-18] MEDS ORDERED: ONDANSETRON *ODT* 4 MG TABLET SL PRN (13:36)
[2022-02-18] MEDS ORDERED: IBUPROFEN 600 MG TABLET (FP) PO PRN (13:36)
[2022-02-18] MEDS ORDERED: MAGNESIUM HYDROX 2400MG/30ML ORAL SUSPENSION 30 ML CUP PO PRN (13:36)
[2022-02-18] MEDS ORDERED: NICOTINE 10 MG CARTRIDGE (INHALER) IH PRN (13:36)
[2022-02-18] MEDS ORDERED: METHOCARBAMOL 500 MG TABLET PO PRN (13:36)
[2022-02-18] MEDS ORDERED: MAG HYDROX/AL HYDROX/SIMETH 30 ML UNIT-DOSE CUP PO PRN (13:36)
[2022-02-18] MEDS ORDERED: LOPERAMIDE HCL 2 MG CAPSULE PO PRN (13:36)
[2022-02-18] MEDS ORDERED: chlordiazePOXIDE HCL 25 MG CAPSULE PO PRN (13:36)
[2022-02-18] MEDS ORDERED: ACETAMINOPHEN 325 MG TABLET (FP) PO PRN ×2 (13:36)
[2022-02-18] MEDS ORDERED: IBUPROFEN 400 MG TABLET (FP) PO PRN (13:36)
[2022-02-18] MEDS: hydrOXYzine PAMOATE 25 MG CAPSULE (FP) PO SCH ×3 (14:38→22:46)
[2022-02-18] MEDS: chlordiazePOXIDE HCL 25 MG CAPSULE PO SCH ×2 (17:57→22:47)
[2022-02-18] MEDS: THIAMINE HCL 100 MG TABLET (FP) PO SCH (22:46)
[2022-02-18] MEDS: QUEtiapine FUMARATE 50 MG TABLET PO SCH (22:46)
[2022-02-18] MEDS: MELATONIN 5 MG TABLETS PO SCH (22:46)
[2022-02-19] MEDS: chlordiazePOXIDE HCL 25 MG CAPSULE PO SCH ×2 (05:14→11:13)
[2022-02-19] MEDS: hydrOXYzine PAMOATE 25 MG CAPSULE (FP) PO SCH ×5 (05:14→22:53)
[2022-02-19] MEDS: PRENATAL VITAMINS W/ FOLIC ACID TABLET (FP) PO SCH (10:24)
[2022-02-19] MEDS: NICOTINE 14 MG/24 HOURS TOPICAL PATCH TD SCH (10:25)
[2022-02-19] MEDS: FLUoxetine HCL 10 MG CAPSULE PO SCH (10:25)
[2022-02-19] MEDS ORDERED: diazePAM 5 MG TABLET PO PRN (12:04)
[2022-02-19 12:56] LABS: HEMATOCRIT 43.7 % (35.4-49); HEMOGLOBIN 14.6 GM/dL (11.7-16.9); MCH 33.2 pg (25.7-33.7); MCHC 33.4 g/dl (32.0-35.9); MEAN CELL VOLUME 99.2 fl (80-96); MEAN PLT VOLUME 7.8 fl (7.5-11.1); PLATELET COUNT 334 10^3/uL (134-434); RDW 12.7 % (11.9-15.9); WHITE BLOOD COUNT 7.5 K/mm3 (4.0-10.0)
[2022-02-19 13:23] LABS: BLOOD UREA NITROGEN 14.7 mg/dL (7-18); CALCIUM 8.9 mg/dL (8.5-10.1)
[2022-02-19 13:24] LABS: ALBUMIN 3.6 g/dl (3.4-5.0)
[2022-02-19 13:27] LABS: CREATININE 1.1 mg/dL (0.55-1.3)
[2022-02-19 13:28] LABS: BILIRUBIN,TOTAL 0.4 mg/dL (0.2-1); TOT PROT 6.8 g/dl (6.4-8.2)
[2022-02-19] MEDS: diazePAM 5 MG TABLET PO SCH ×2 (17:52→22:54)
[2022-02-19] MEDS: THIAMINE HCL 100 MG TABLET (FP) PO SCH (22:53)
[2022-02-19] MEDS: MELATONIN 5 MG TABLETS PO SCH (22:53)
[2022-02-19] MEDS: QUEtiapine FUMARATE 50 MG TABLET PO SCH (22:53)
[2022-02-20] MEDS ORDERED: chlordiazePOXIDE HCL 25 MG CAPSULE PO SCH (05:00)
[2022-02-20] MEDS: diazePAM 5 MG TABLET PO SCH ×4 (05:57→22:51)
[2022-02-20] MEDS: hydrOXYzine PAMOATE 25 MG CAPSULE (FP) PO SCH ×5 (05:57→22:52)
[2022-02-20] MEDS: PRENATAL VITAMINS W/ FOLIC ACID TABLET (FP) PO SCH (10:27)
[2022-02-20] MEDS: FLUoxetine HCL 10 MG CAPSULE PO SCH (10:27)
[2022-02-20] MEDS: NICOTINE 14 MG/24 HOURS TOPICAL PATCH TD SCH (10:27)
[2022-02-20] MEDS: MELATONIN 5 MG TABLETS PO SCH (22:51)
[2022-02-20] MEDS: QUEtiapine FUMARATE 50 MG TABLET PO SCH (22:51)
[2022-02-20] MEDS: THIAMINE HCL 100 MG TABLET (FP) PO SCH (22:52)
[2022-02-21] MEDS ORDERED: chlordiazePOXIDE HCL 10 MG CAPSULE PO PRN
[2022-02-21] MEDS ORDERED: chlordiazePOXIDE HCL 10 MG CAPSULE PO SCH (05:00)
[2022-02-21] MEDS: diazePAM 5 MG TABLET PO SCH ×3 (05:14→22:43)
[2022-02-21] MEDS: hydrOXYzine PAMOATE 25 MG CAPSULE (FP) PO SCH ×5 (05:15→22:43)
[2022-02-21] MEDS: FLUoxetine HCL 10 MG CAPSULE PO SCH (10:40)
[2022-02-21] MEDS: NICOTINE 14 MG/24 HOURS TOPICAL PATCH TD SCH (10:40)
[2022-02-21] MEDS: PRENATAL VITAMINS W/ FOLIC ACID TABLET (FP) PO SCH (10:40)
[2022-02-21] MEDS: THIAMINE HCL 100 MG TABLET (FP) PO SCH (22:43)
[2022-02-21] MEDS: QUEtiapine FUMARATE 50 MG TABLET PO SCH (22:43)
[2022-02-21] MEDS: MELATONIN 5 MG TABLETS PO SCH (22:43)
[2022-02-22] MEDS ORDERED: chlordiazePOXIDE HCL 10 MG CAPSULE PO SCH (05:00)
[2022-02-22] MEDS: hydrOXYzine PAMOATE 25 MG CAPSULE (FP) PO SCH ×5 (05:27→22:57)
[2022-02-22] MEDS: diazePAM 5 MG TABLET PO SCH ×2 (05:27→17:44)
[2022-02-22] MEDS: NICOTINE 14 MG/24 HOURS TOPICAL PATCH TD SCH (10:18)
[2022-02-22] MEDS: FLUoxetine HCL 10 MG CAPSULE PO SCH (10:18)
[2022-02-22] MEDS: PRENATAL VITAMINS W/ FOLIC ACID TABLET (FP) PO SCH (10:18)
[2022-02-22] MEDS: MELATONIN 5 MG TABLETS PO SCH (22:56)
[2022-02-22] MEDS: QUEtiapine FUMARATE 50 MG TABLET PO SCH (22:56)
[2022-02-22] MEDS: CLOTRIMAZOLE 1% CREAM TP SCH (22:57)
[2022-02-22] MEDS: THIAMINE HCL 100 MG TABLET (FP) PO SCH (22:57)
[2022-02-23] MEDS ORDERED: chlordiazePOXIDE HCL 10 MG CAPSULE PO ONE (05:00)
[2022-02-23] MEDS: hydrOXYzine PAMOATE 25 MG CAPSULE (FP) PO SCH ×3 (05:25→14:05)
[2022-02-23] MEDS ORDERED: diazePAM 5 MG TABLET PO ONE (06:00)
[2022-02-23] MEDS: CLOTRIMAZOLE 1% CREAM TP SCH (10:24)
[2022-02-23] MEDS: FLUoxetine HCL 10 MG CAPSULE PO SCH (10:24)
[2022-02-23] MEDS: PRENATAL VITAMINS W/ FOLIC ACID TABLET (FP) PO SCH (10:25)
[2022-02-23] MEDS: NICOTINE 14 MG/24 HOURS TOPICAL PATCH TD SCH (10:25)
[2022-02-23 13:04] VITALS: BP 133/90; PULSE 76; TEMP 97.7
== END 2022-02-23 14:36 | disposition other institution (70) | DRG 897 ==
LOC: YASAS 12:50 → Y3N 13:52
PROVIDERS: ADMIT Allergy & Immunology; ATTEND Surgery
PROC: HZ2ZZZZ Detoxification Services for Substance Abuse Treatment (ICD-10-PCS; principal; 2022-02-18)
DX: F10.230 Alcohol dependence with withdrawal, uncomplicated (principal); F14.20 Cocaine dependence, uncomplicated; F12.20 Cannabis dependence, uncomplicated; F17.210 Nicotine dependence, cigarettes, uncomplicated; F25.9 Schizoaffective disorder, unspecified; M15.9 Polyosteoarthritis, unspecified; Z99.89 Dependence on other enabling machines and devices; Z59.02 Unsheltered homelessness; Z56.0 Unemployment, unspecified
CPT/HCPCS: 36415; 80053; 85027; 86780; C9803-CS; U0003; U0005

== ENCOUNTER 2022-02-23 14:50 | Inpatient (IN) | payer OTHER ==
[2022-02-23] MEDS ORDERED: NICOTINE POLACRILEX 2 MG GUM BUC PRN (20:35)
[2022-02-23] MEDS ORDERED: P-EPHED 60MG/TRIPROLIDI 2.5MG TABLET PO PRN (20:35)
[2022-02-23] MEDS ORDERED: MAG HYDROX/AL HYDROX/SIMETH 30 ML UNIT-DOSE CUP PO PRN (20:35)
[2022-02-23] MEDS ORDERED: IBUPROFEN 400 MG TABLET (FP) PO PRN (20:35)
[2022-02-23] MEDS ORDERED: BENZOCAINE/MENTHOL (CHLORASEPTIC ) LOZENGE MM PRN (20:35)
[2022-02-23] MEDS ORDERED: MAGNESIUM HYDROX 2400MG/30ML ORAL SUSPENSION 30 ML CUP PO PRN (20:35)
[2022-02-23] MEDS ORDERED: MAGNESIUM CITRATE 300 ML BOTTLE PO PRN (20:35)
[2022-02-23] MEDS ORDERED: LOPERAMIDE HCL 2 MG CAPSULE PO PRN (20:35)
[2022-02-23] MEDS ORDERED: NICOTINE 10 MG CARTRIDGE (INHALER) IH PRN (20:35)
[2022-02-23] MEDS ORDERED: guaiFENesin 200 MG/10 ML 10 ML UNIT-DOSE CUPS PO PRN (20:35)
[2022-02-23] MEDS ORDERED: ACETAMINOPHEN 325 MG TABLET (FP) PO PRN (20:35)
[2022-02-23] MEDS: MELATONIN 5 MG TABLETS PO SCH (21:25)
[2022-02-23] MEDS: THIAMINE HCL 100 MG TABLET (FP) PO SCH (21:25)
[2022-02-24] MEDS: PRENATAL VITAMINS W/ FOLIC ACID TABLET (FP) PO SCH (10:19)
[2022-02-24] MEDS: MELATONIN 5 MG TABLETS PO SCH (22:08)
[2022-02-24] MEDS: THIAMINE HCL 100 MG TABLET (FP) PO SCH (22:08)
[2022-02-25] MEDS: FLUoxetine HCL 10 MG TABLET PO SCH (10:37)
[2022-02-25] MEDS: PRENATAL VITAMINS W/ FOLIC ACID TABLET (FP) PO SCH (10:37)
[2022-02-25] MEDS: THIAMINE HCL 100 MG TABLET (FP) PO SCH (21:14)
[2022-02-25] MEDS: QUEtiapine FUMARATE 50 MG TABLET PO SCH (21:14)
[2022-02-26] MEDS: FLUoxetine HCL 10 MG TABLET PO SCH (10:00)
[2022-02-26] MEDS: PRENATAL VITAMINS W/ FOLIC ACID TABLET (FP) PO SCH (10:00)
[2022-02-26] MEDS: QUEtiapine FUMARATE 50 MG TABLET PO SCH (21:26)
[2022-02-26] MEDS: THIAMINE HCL 100 MG TABLET (FP) PO SCH (21:26)
[2022-02-27] MEDS: FLUoxetine HCL 10 MG TABLET PO SCH (09:48)
[2022-02-27] MEDS: PRENATAL VITAMINS W/ FOLIC ACID TABLET (FP) PO SCH (09:48)
[2022-02-27] MEDS: QUEtiapine FUMARATE 50 MG TABLET PO SCH (21:39)
[2022-02-27] MEDS: THIAMINE HCL 100 MG TABLET (FP) PO SCH (21:40)
[2022-02-28] MEDS: PRENATAL VITAMINS W/ FOLIC ACID TABLET (FP) PO SCH (10:07)
[2022-02-28] MEDS: FLUoxetine HCL 10 MG TABLET PO SCH (10:07)
[2022-02-28] MEDS: THIAMINE HCL 100 MG TABLET (FP) PO SCH (21:46)
[2022-02-28] MEDS: QUEtiapine FUMARATE 50 MG TABLET PO SCH (21:46)
[2022-03-01] MEDS: PRENATAL VITAMINS W/ FOLIC ACID TABLET (FP) PO SCH (10:40)
[2022-03-01] MEDS: FLUoxetine HCL 10 MG TABLET PO SCH (10:41)
[2022-03-01] MEDS: QUEtiapine FUMARATE 50 MG TABLET PO SCH (21:36)
[2022-03-01] MEDS: THIAMINE HCL 100 MG TABLET (FP) PO SCH (21:37)
[2022-03-02] MEDS: PRENATAL VITAMINS W/ FOLIC ACID TABLET (FP) PO SCH (10:43)
[2022-03-02] MEDS: FLUoxetine HCL 10 MG TABLET PO SCH (10:43)
[2022-03-02] MEDS: THIAMINE HCL 100 MG TABLET (FP) PO SCH (21:24)
[2022-03-02] MEDS: QUEtiapine FUMARATE 50 MG TABLET PO SCH (21:24)
[2022-03-03] MEDS: PRENATAL VITAMINS W/ FOLIC ACID TABLET (FP) PO SCH (10:18)
[2022-03-03] MEDS: FLUoxetine HCL 10 MG TABLET PO SCH (10:18)
[2022-03-03] MEDS: QUEtiapine FUMARATE 50 MG TABLET PO SCH (21:37)
[2022-03-03] MEDS: THIAMINE HCL 100 MG TABLET (FP) PO SCH (21:38)
[2022-03-04] MEDS: FLUoxetine HCL 10 MG TABLET PO SCH (10:17)
[2022-03-04] MEDS: PRENATAL VITAMINS W/ FOLIC ACID TABLET (FP) PO SCH (10:17)
[2022-03-04] MEDS: QUEtiapine FUMARATE 50 MG TABLET PO SCH (21:47)
[2022-03-04] MEDS: THIAMINE HCL 100 MG TABLET (FP) PO SCH (21:47)
[2022-03-05] MEDS: PRENATAL VITAMINS W/ FOLIC ACID TABLET (FP) PO SCH (10:19)
[2022-03-05] MEDS: FLUoxetine HCL 10 MG TABLET PO SCH (10:20)
[2022-03-05] MEDS: QUEtiapine FUMARATE 50 MG TABLET PO SCH (21:40)
[2022-03-05] MEDS: THIAMINE HCL 100 MG TABLET (FP) PO SCH (21:40)
[2022-03-06] MEDS: PRENATAL VITAMINS W/ FOLIC ACID TABLET (FP) PO SCH (10:02)
[2022-03-06] MEDS: FLUoxetine HCL 10 MG TABLET PO SCH (10:03)
[2022-03-06] MEDS: THIAMINE HCL 100 MG TABLET (FP) PO SCH (21:14)
[2022-03-06] MEDS: QUEtiapine FUMARATE 50 MG TABLET PO SCH (21:14)
[2022-03-07] MEDS: PRENATAL VITAMINS W/ FOLIC ACID TABLET (FP) PO SCH (10:02)
[2022-03-07] MEDS: FLUoxetine HCL 10 MG TABLET PO SCH (10:02)
[2022-03-07] MEDS: THIAMINE HCL 100 MG TABLET (FP) PO SCH (21:02)
[2022-03-07] MEDS: QUEtiapine FUMARATE 50 MG TABLET PO SCH (21:02)
[2022-03-08] MEDS: FLUoxetine HCL 10 MG TABLET PO SCH (10:22)
[2022-03-08] MEDS: PRENATAL VITAMINS W/ FOLIC ACID TABLET (FP) PO SCH (10:22)
[2022-03-08] MEDS: THIAMINE HCL 100 MG TABLET (FP) PO SCH (21:06)
[2022-03-08] MEDS: QUEtiapine FUMARATE 50 MG TABLET PO SCH (21:06)
[2022-03-09] MEDS: PRENATAL VITAMINS W/ FOLIC ACID TABLET (FP) PO SCH (09:56)
[2022-03-09] MEDS: FLUoxetine HCL 10 MG TABLET PO SCH (09:56)
[2022-03-09] MEDS: QUEtiapine FUMARATE 50 MG TABLET PO SCH (21:19)
[2022-03-09] MEDS: THIAMINE HCL 100 MG TABLET (FP) PO SCH (21:19)
[2022-03-10] MEDS: PRENATAL VITAMINS W/ FOLIC ACID TABLET (FP) PO SCH (09:56)
[2022-03-10] MEDS: FLUoxetine HCL 10 MG TABLET PO SCH (09:56)
[2022-03-10] MEDS: QUEtiapine FUMARATE 50 MG TABLET PO SCH (21:12)
[2022-03-10] MEDS: THIAMINE HCL 100 MG TABLET (FP) PO SCH (21:12)
[2022-03-11 07:14] VITALS: BP 116/68; PULSE 65; RESP 16; TEMP 97.5
[2022-03-11] MEDS: PRENATAL VITAMINS W/ FOLIC ACID TABLET (FP) PO SCH (09:35)
[2022-03-11] MEDS: FLUoxetine HCL 10 MG TABLET PO SCH (09:36)
== END 2022-03-11 10:13 | disposition home or self-care (01) | DRG 895 ==
LOC: YASAS 14:50 → Y3W 14:51
PROVIDERS: ADMIT Allergy & Immunology; ATTEND Family Medicine
PROC: HZ42ZZZ Group Counseling for Substance Abuse Treatment, Cognitive-Behavioral (ICD-10-PCS; principal; 2022-02-23)
DX: F10.20 Alcohol dependence, uncomplicated (principal); F14.20 Cocaine dependence, uncomplicated; F12.20 Cannabis dependence, uncomplicated; F17.210 Nicotine dependence, cigarettes, uncomplicated

== ENCOUNTER 2023-02-23 12:45 | Inpatient (IN) | payer OTHER ==
[2023-02-23] MEDS ORDERED: MAGNESIUM HYDROX 2400MG/30ML ORAL SUSPENSION 30 ML CUP PO PRN (14:02)
[2023-02-23] MEDS ORDERED: NALOXONE HCL (KLOXXADO) 8 MG SPRAY NS PRN (14:02)
[2023-02-23] MEDS ORDERED: IBUPROFEN 600 MG TABLET (FP) PO PRN (14:02)
[2023-02-23] MEDS ORDERED: COLLOIDAL OATMEAL 1 BAR EACH TP PRN (14:02)
[2023-02-23] MEDS ORDERED: LOPERAMIDE HCL 2 MG CAPSULE PO PRN (14:02)
[2023-02-23] MEDS ORDERED: ACETAMINOPHEN 325 MG TABLET (FP) PO PRN (14:02)
[2023-02-23] MEDS ORDERED: BENZONATATE 200 MG CAPSULE PO PRN (14:02)
[2023-02-23] MEDS ORDERED: AMMONIUM LACTATE 12% LOTION 225 GM BOTTLE TP PRN (14:02)
[2023-02-23] MEDS ORDERED: POLYETHYLENE GLYCOL (HEALTHYLAX) 3350 17 GM PACKET PO PRN (14:02)
[2023-02-23] MEDS ORDERED: guaiFENesin 600 MG TABLET.ER (FP) PO PRN (14:02)
[2023-02-23] MEDS ORDERED: BENZOCAINE/MENTHOL (CHLORASEPTIC ) LOZENGE MM PRN (14:02)
[2023-02-23] MEDS ORDERED: IBUPROFEN 400 MG TABLET (FP) PO PRN (14:02)
[2023-02-23] MEDS ORDERED: hydrOXYzine PAMOATE 25 MG CAPSULE (FP) PO PRN (14:02)
[2023-02-23] MEDS ORDERED: NALOXONE HCL 0.4 MG/ML VIAL IVPUSH PRN (14:02)
[2023-02-23] MEDS ORDERED: NICOTINE 10 MG CARTRIDGE (INHALER) IH PRN (14:02)
[2023-02-23] MEDS: THIAMINE HCL 100 MG TABLET (FP) PO SCH (21:16)
[2023-02-23] MEDS ORDERED: MELATONIN 5 MG TABLETS PO SCH (22:00)
[2023-02-24] MEDS: PRENATAL VITAMINS W/ FOLIC ACID TABLET (FP) PO SCH (10:08)
[2023-02-24] MEDS: THIAMINE HCL 100 MG TABLET (FP) PO SCH (21:18)
[2023-02-24] MEDS: QUEtiapine FUMARATE 50 MG TABLET PO SCH (21:18)
[2023-02-25] MEDS: PRENATAL VITAMINS W/ FOLIC ACID TABLET (FP) PO SCH (09:46)
[2023-02-25] MEDS: THIAMINE HCL 100 MG TABLET (FP) PO SCH (21:28)
[2023-02-25] MEDS: QUEtiapine FUMARATE 50 MG TABLET PO SCH (21:28)
[2023-02-26] MEDS: PRENATAL VITAMINS W/ FOLIC ACID TABLET (FP) PO SCH (09:48)
[2023-02-26] MEDS: THIAMINE HCL 100 MG TABLET (FP) PO SCH (21:22)
[2023-02-26] MEDS: QUEtiapine FUMARATE 50 MG TABLET PO SCH (21:23)
[2023-02-27] MEDS: PRENATAL VITAMINS W/ FOLIC ACID TABLET (FP) PO SCH (09:45)
[2023-02-27] MEDS: THIAMINE HCL 100 MG TABLET (FP) PO SCH (21:16)
[2023-02-27] MEDS: QUEtiapine FUMARATE 50 MG TABLET PO SCH (21:16)
[2023-02-28] MEDS: PRENATAL VITAMINS W/ FOLIC ACID TABLET (FP) PO SCH (10:02)
[2023-02-28] MEDS: MAG HYDROX/AL HYDROX/SIMETH 30 ML UNIT-DOSE CUP PO PRN (19:43)
[2023-02-28] MEDS: THIAMINE HCL 100 MG TABLET (FP) PO SCH (21:21)
[2023-02-28] MEDS: QUEtiapine FUMARATE 50 MG TABLET PO SCH (21:22)
[2023-03-01] MEDS: PRENATAL VITAMINS W/ FOLIC ACID TABLET (FP) PO SCH (09:32)
[2023-03-01] MEDS: QUEtiapine FUMARATE 50 MG TABLET PO SCH (21:26)
[2023-03-01] MEDS: THIAMINE HCL 100 MG TABLET (FP) PO SCH (21:26)
[2023-03-02] MEDS: PRENATAL VITAMINS W/ FOLIC ACID TABLET (FP) PO SCH (10:02)
[2023-03-02] MEDS: THIAMINE HCL 100 MG TABLET (FP) PO SCH (21:08)
[2023-03-02] MEDS: QUEtiapine FUMARATE 50 MG TABLET PO SCH (21:08)
[2023-03-03] MEDS: PRENATAL VITAMINS W/ FOLIC ACID TABLET (FP) PO SCH (09:45)
[2023-03-03] MEDS: QUEtiapine FUMARATE 50 MG TABLET PO SCH (21:20)
[2023-03-03] MEDS: THIAMINE HCL 100 MG TABLET (FP) PO SCH (21:20)
[2023-03-04] MEDS: PRENATAL VITAMINS W/ FOLIC ACID TABLET (FP) PO SCH (09:57)
[2023-03-04] MEDS: QUEtiapine FUMARATE 50 MG TABLET PO SCH (21:15)
[2023-03-04] MEDS: THIAMINE HCL 100 MG TABLET (FP) PO SCH (21:15)
[2023-03-05] MEDS: PRENATAL VITAMINS W/ FOLIC ACID TABLET (FP) PO SCH (09:37)
[2023-03-05] MEDS: THIAMINE HCL 100 MG TABLET (FP) PO SCH (21:22)
[2023-03-05] MEDS: QUEtiapine FUMARATE 50 MG TABLET PO SCH (21:22)
[2023-03-06] MEDS: PRENATAL VITAMINS W/ FOLIC ACID TABLET (FP) PO SCH (09:56)
[2023-03-06] MEDS: MAG HYDROX/AL HYDROX/SIMETH 30 ML UNIT-DOSE CUP PO PRN (11:40)
[2023-03-06] MEDS: THIAMINE HCL 100 MG TABLET (FP) PO SCH (21:23)
[2023-03-06] MEDS: QUEtiapine FUMARATE 50 MG TABLET PO SCH (21:24)
[2023-03-07] MEDS: PRENATAL VITAMINS W/ FOLIC ACID TABLET (FP) PO SCH (09:42)
[2023-03-07] MEDS: THIAMINE HCL 100 MG TABLET (FP) PO SCH (21:19)
[2023-03-07] MEDS: QUEtiapine FUMARATE 50 MG TABLET PO SCH (21:20)
[2023-03-08] MEDS: PRENATAL VITAMINS W/ FOLIC ACID TABLET (FP) PO SCH (10:05)
[2023-03-08] MEDS: QUEtiapine FUMARATE 50 MG TABLET PO SCH (21:20)
[2023-03-08] MEDS: THIAMINE HCL 100 MG TABLET (FP) PO SCH (21:20)
[2023-03-09] MEDS: PRENATAL VITAMINS W/ FOLIC ACID TABLET (FP) PO SCH (09:31)
[2023-03-09] MEDS: MAG HYDROX/AL HYDROX/SIMETH 30 ML UNIT-DOSE CUP PO PRN (18:53)
[2023-03-09] MEDS: QUEtiapine FUMARATE 50 MG TABLET PO SCH (21:13)
[2023-03-09] MEDS: THIAMINE HCL 100 MG TABLET (FP) PO SCH (21:13)
[2023-03-10 06:37] VITALS: RESP 16; TEMP 97.9
[2023-03-10 09:16] VITALS: BP 127/79; PULSE 82
[2023-03-10] MEDS: PRENATAL VITAMINS W/ FOLIC ACID TABLET (FP) PO SCH (09:20)
== END 2023-03-10 09:30 | disposition home or self-care (01) | DRG 895 ==
LOC: YASAS 12:45 → Y3E 12:48
PROVIDERS: ADMIT Allergy & Immunology; ATTEND Psychiatry & Neurology Pain Medicine
PROC: HZ42ZZZ Group Counseling for Substance Abuse Treatment, Cognitive-Behavioral (ICD-10-PCS; principal; 2023-02-23)
DX: F10.20 Alcohol dependence, uncomplicated (principal); F14.20 Cocaine dependence, uncomplicated; F17.210 Nicotine dependence, cigarettes, uncomplicated; F19.982 Other psychoactive substance use, unspecified with psychoactive substance-induced sleep disorder; F31.9 Bipolar disorder, unspecified; F25.9 Schizoaffective disorder, unspecified; M17.0 Bilateral primary osteoarthritis of knee; G47.00 Insomnia, unspecified; Z56.0 Unemployment, unspecified; Z59.01 Sheltered homelessness
CPT/HCPCS: 36415; 86803; 87635